=== PATIENT | male | born 1955 | race Caucasian/White ===

== ENCOUNTER → 2023-09-15 18:45 | Outpatient (REF) | payer OTHER, SELFPAY | LOC: MRI 3T 18:45 | PROVIDERS: ATTENDING PHYSICIAN Family Medicine | DX: S06.0X1A Concussion with loss of consciousness of 30 minutes or less, initial encounter (principal) | CPT/HCPCS: 70553; A9575 ==

== ENCOUNTER → 2023-10-05 06:39 | Outpatient (REF) | payer OTHER, SELFPAY | LOC: MRI 3T 06:39 | PROVIDERS: ATTENDING PHYSICIAN Family Medicine | DX: M54.2 Cervicalgia (principal) | CPT/HCPCS: 72141 ==